=== PATIENT | female | born 1985 | race Caucasian/White ===

== ENCOUNTER 2016-03-15 18:49 | Emergency (ER) | payer MEDICAID ==
[2016-03-15 19:21] VITALS: TEMP 98; O2SAT 97
[2016-03-15] MEDS ORDERED: NS 1,000 ML IV ONE (19:26)
[2016-03-15] MEDS ORDERED: ONDANSETRON 4 MG/2 ML VIAL IVP ONE (19:26)
[2016-03-15 19:48] VITALS: BP 108/72; PULSE 84; RESP 20
[2016-03-15 19:56] LABS: ANION GAP 9 mEq/L (8-16); CALCIUM 9.4 mg/dL (8.5-10.4); CARBON DIOXIDE 23 mEq/l (22-31); CHLORIDE 103 mEq/L (97-110); CREATININE 0.6 mg/dL (0.6-1.0); GLOMERULAR FILTRATION RATE > 60; GLUCOSE 80 mg/dL (70-100); POTASSIUM 4.1 mEq/L (3.5-5.2); SODIUM 135 mEq/L (134-144)
[2016-03-15] MEDS ORDERED: ACETAMINOPHEN 325 MG TAB ONE (20:52)
[2016-03-15] MEDS ORDERED: ONDANSETRON 4MG PREPACK#2 BTL TAKEHOME ONE (21:00)
--- NOTE | 2016-03-15 21:02 | UCPHY ---
H & P Time Seen by Provider: 03/15/16 19:18 Patient Type: Established HPI/ROS: This patient complains of vomiting unrelieved by Diclegis tablets at home. She has a known 14 week IUP with a normal appearing ultrasound 1 week ago. She reports onset of vomiting last night at 7:00 p.m. after dinner and she has been unable to keep her antiemetic medication down. She vomited several times throughout the day prior to arrival here. She reports onset of a headache 6/10 that she attributes to dehydration that feels similar to previous migraines but less intense. Currently her pain level 6/10, frontal location bilaterally throbbing achy in nature. She specifies that the headache started after the vomiting. She is accompanied by her tonlori. ROS: Constitutional: No fevers or chills. Neuro: No focal numbness tingling weakness. HEENT: No vision changes. No recent trauma. No sinus symptoms. Pulmonary: No complaints cardiovascular: No heart palpitations. GI: No significant abdominal pain despite the vomiting. : No vaginal bleeding. no urinary symptoms. 10 point ROS is otherwise negative. Past Medical/Surgical History: Migraines 14 week IUP, Otherwise healthy Smoking Status: Light smoker Physical Exam: Vital signs normal with exception of a pulse of 102. heart tones are in the 150s on Doppler bedside ultrasound General Appearance: Alert, no distress. Eyes: Pupils equal and round no pallor or injection. ENT, Mouth: Mucous membranes dry. No sinus tenderness to percussion. No cranial tenderness. Nose is clear. No oropharynx is clear Neck: Supple with no meningismus. Respiratory: There are no retractions, lungs are clear to auscultation. Cardiovascular: Regular rate and rhythm. Gastrointestinal: Abdomen is soft and nontender, no masses, bowel sounds normal. No uterine tenderness. Uterus consistent with dates. Neurological: GCS of 15. Cranial nerves 2-12 intact. No focal sensory or motor deficits. Skin: Warm and dry, no rashes. Extremities are symmetrical, full range of motion. Psychiatric: Mood and affect normal DIFFERENTIAL DIAGNOSIS: After history and physical exam differential diagnosis was considered for hyperemesis gravidarum, dehydration, tension headache versus mild migraine. Rule out metabolic abnormalityer vomiting Constitutional: Initial Vital Signs Temperature (C) 36.6 C 03/15/16 19:16 Heart Rate 102 H 03/15/16 19:16 Respiratory Rate 18 03/15/16 19:16 Blood Pressure 100/98 H 03/15/16 19:16 O2 Sat (%) 97 03/15/16 19:16 O2 Delivery Mode Room Air Allergies/Adverse Reactions: clindamycin [Clindamycin] Allergy (Verified 01/13/10 07:56) Penicillins Allergy (Verified 05/21/09 23:29) Home Medications: Medication Instructions Recorded Flor Astudillo 10-10 mg Tablet 03/15/16 MDM/Departure - MDM Medications Given: Discontinued Medications Sodium Chloride (Ns) 1,000 mls @ 0 mls/hr IV ONCE ONE PRN Reason: Wide Open Stop: 03/15/16 19:27 Last Admin: 03/15/16 19:45 Dose: 1,000 mls Ondansetron HCl (Zofran) 4 mg IVP EDNOW ONE Stop: 03/15/16 19:27 Last Admin: 03/15/16 19:45 Dose: 4 mg Ondansetron HCl (Zofran Odt 4 Mg Prepack#2) 1 btl TAKEHOME EDNOW ONE Stop: 03/15/16 21:01 Last Admin: 03/15/16 22:05 Dose: 1 btl ED Course/Re-evaluation: IV normal saline bolus Zofran 4 mg IV with resolution of nausea and vomiting. Tylenol p. o. with improvement in headache. Patient declined any other analgesics for her headache. Review of her basic metabolic panel is normal Discussion: Findings consistent with hyperemesis gravidarum with dehydration improved with treatment. Clinically she does not appear to have findings concerning for sinus infection, intracranial bleed or other concerning findings. - Depart Disposition: Home, Routine, Self-Care Clinical Impression: Hyperemesis gravidarum with dehydration Clinical Impression: (Ruled Out): Hyperemesis gravidarum before end of 22 week gestation with carbohydrate depletion Instructions: Hyperemesis Gravidarum (ED) Additional Instructions: Diagnosis: 1. Hyperemesis gravidarum 2. Dehydration Plan: Drink plenty fluids Light diet until he feel improved Zofran tonight if needed for nausea or vomiting and then restart your likely just. Return here or to the emergency department for any significant worsening despite the treatment plan. Referrals: [place],. [Primary Care Provider] - As per Instructions - PQRS PQRS Measurement: NA
== END 2016-03-15 22:08 | disposition home or self-care (01) ==
LOC: CED 18:49
DX: O21.0 Mild hyperemesis gravidarum (principal); Z3A.14 14 weeks gestation of pregnancy
CPT/HCPCS: 80048-PO; 96361-PO; 96374-PO; 99214-PO; G0463-PO; J2405

== ENCOUNTER 2016-04-16 17:49 | Emergency (ER) | payer MEDICAID ==
[2016-04-16 18:16] VITALS: BP 112/62; PULSE 103; RESP 18; TEMP 97.3; O2SAT 97
[2016-04-16 18:16] LABS: COLOR LT. YELLOW; PH,URINE 6.5 (5.0-7.5)
[2016-04-16 18:17] LABS: LEUKOCYTE ESTERASE,URINE 1+ (NEGATIVE); NITRITE,URINE NEGATIVE (NEGATIVE)
[2016-04-16 18:19] LABS: BACTERIA 1+ /hpf (NONE SEEN); MUCUS TRACE /lpf (NONE-1+); RBC,URINE 15-25 /hpf (0-3)
--- NOTE | 2016-04-20 07:06 | EDPHY ---
ED Progress Note Narrative: I did not see this patient.
== END 2016-04-16 18:20 | disposition home or self-care (01) ==
LOC: CED 17:49
DX: O99.89 Other specified diseases and conditions complicating pregnancy, childbirth and the puerperium (principal); R10.30 Lower abdominal pain, unspecified; M54.9 Dorsalgia, unspecified; Z53.21 Procedure and treatment not carried out due to patient leaving prior to being seen by health care provider; Z3A.19 19 weeks gestation of pregnancy
CPT/HCPCS: 81003-PO; 81015-PO

== ENCOUNTER 2016-12-06 13:03 | Emergency (ER) | payer MEDICAID ==
[2016-12-06] MEDS ORDERED: NS 1,000 ML IV ONE (13:15)
[2016-12-06 13:16] VITALS: TEMP 98
[2016-12-06] MEDS ORDERED: KETOROLAC 30 MG/1 ML SDV IVP ONE (13:27)
[2016-12-06 13:44] LABS: % IMMATURE GRANULYOCYTES 0.2 % (0.0-1.1); ABSOLUTE IMMATURE GRANULOCYTES 0.01 10^3/uL (0.00-0.10); ADD DIFF? NO; ADD MORPH? NO; ADD SCAN? NO; ATYPICAL LYMPHOCYTE FLAG 10 (0-99); FRAGMENT RBC FLAG 0 (0-99); HEMATOCRIT 42.9 % (38.0-47.0); HEMOGLOBIN 13.8 g/dL (12.6-16.3); LEFT SHIFT FLG 0 (0-99); LIPEMIA HEMOLYSIS FLAG 80 (0-99); MEAN CELL HEMOGLOBIN 27.4 pg (27.9-34.1); MEAN CELL HEMOGLOBIN CONCENTR. 32.2 g/dL (32.4-36.7); MEAN CELL VOLUME 85.3 fL (81.5-99.8); MEAN PLATELET VOLUME 9.8 fL (8.7-11.7); PLATELET CLUMPS FLAG 0 (0-99); PLATELET COUNT 304 10^3/uL (150-400); RED BLOOD CELL COUNT 5.03 10^6/uL (4.18-5.33); RED CELL DISTRIBUTION WIDTH 14.3 % (11.5-15.2)
[2016-12-06 13:58] LABS: ANION GAP 10 mEq/L (8-16); CALCIUM 9.3 mg/dL (8.5-10.4); CARBON DIOXIDE 26 mEq/l (22-31); CHLORIDE 103 mEq/L (97-110); CREATININE 0.7 mg/dL (0.6-1.0); GLOMERULAR FILTRATION RATE > 60; GLUCOSE 78 mg/dL (70-100); POTASSIUM 4.1 mEq/L (3.5-5.2); SODIUM 139 mEq/L (134-144)
[2016-12-06 14:21] LABS: COLOR YELLOW; LEUKOCYTE ESTERASE,URINE TRACE (NEGATIVE); NITRITE,URINE NEGATIVE (NEGATIVE)
[2016-12-06 14:35] LABS: BACTERIA 1+ /hpf (NONE SEEN)
[2016-12-06 14:36] LABS: AMORPHOUS TRACE /hpf (NONE-1+)
--- NOTE | 2016-12-06 14:44 | EDPHY ---
H & P Stated Complaint: c/o lower abd pain x 3 days - denies N/V/D or trauma Time Seen by Provider: 12/06/16 13:15 HPI/ROS: This patient complains of lower abdominal pain left slightly more than right, gradual onset yesterday. She was driven here by her by private vehicle for further evaluation of the symptoms that she describes as generally moderate in intensity occasionally up to 7/10 cramping aching. Current intensity 6/10. The pain worsens but with movement and she notes no other exacerbating factors. She has not tried any medication for her pain. She reports that the symptoms are similar to premenstrual cramps but seems slightly higher than her past premenstrual cramping. The patient is 3 months and has been breast- feeding until 3 weeks ago. She stopped breast-feeding 3 weeks prior to this visit. She reports no other associated symptoms. ROS: Constitutional: No fevers or chills HEENT: Mild sneezing otherwise complaints. Pulmonary: No cough. Cardiovascular: No lightheadedness GI: No nausea vomiting. She does report loose stools-3 bowel movements a day for the past 3 days. No bloody stools. : No vaginal discharge. No dysuria. Integumentary: No skin rash 10 point ROS is otherwise negative Source: Patient Exam Limitations: No limitations - Personal History LMP (Females 10-55): Over 28 Days Ago Current Tetanus Diphtheria and Acellular Pertussis (TDAP): Unsure - Medical/Surgical History PMH: No chronic medical conditions Hx Asthma: No Hx Chronic Respiratory Disease: No Hx Diabetes: No Hx Cardiac Disease: No Hx Renal Disease: No Hx Cirrhosis: No Hx Alcoholism: No Hx HIV/AIDS: No Hx Splenectomy or Spleen Trauma: No Other PMH: migraines/ CHI, dizziness - Family History Significant Family History: No pertinent family hx - Social History Smoking Status: Light smoker Alcohol Use: Occasionally Drug Use: None - Physical Exam Exam: General Appearance: Alert, no distress. Eyes: Pupils equal and round no pallor or injection. ENT, Mouth: Mucous membranes moist. Respiratory: There are no retractions, lungs are clear to auscultation. Cardiovascular: Regular rate and rhythm. Gastrointestinal: Normoactive soft, mild diffuse lower belly tenderness with no guarding or rebound. Back: No CVA tenderness Neurological: GCS 15 Skin: Warm and dry, no rashes. Musculoskeletal: Neck is supple nontender. Extremities are symmetrical, full range of motion. Psychiatric: Mood and affect normal DIFFERENTIAL DIAGNOSIS: After history and physical exam differential diagnosis was considered for premenstrual cramping, diverticulitis, food intolerance, viral diarrhea, UTI, Constitutional: Initial Vital Signs Temperature (C) 36.6 C 12/06/16 13:13 Heart Rate 78 12/06/16 13:13 Respiratory Rate 20 12/06/16 13:13 Blood Pressure 110/74 12/06/16 13:13 O2 Sat (%) 96 12/06/16 13:13 O2 Delivery Mode Room Air Allergies/Adverse Reactions: clindamycin [Clindamycin] Allergy (Verified 04/16/16 18:12) Penicillins Allergy (Verified 04/16/16 18:12) Home Medications: Medication Instructions Recorded NK [No Known Home Meds] 12/06/16 Medical Decision Making ED Course/Re-evaluation: Course: IV normal saline bolus A review of labs-normal CBC, normal basic metabolic panel, hCG is negative, urinalysis without significant abnormalities. Patient declined Toradol. She except Tylenol p.o. with some improvement Discussion: Patient with lower belly pain that may be parental cramping. I do not think she has diverticulitis given lack of leukocytosis or fever. Food intolerance or mild viral illness causing loose stools and cramping is another possibility. I counseled patient regarding this. Not think she has appendicitis given her minimal symptoms and findings. We ruled out UTI. We ruled out /ectopic with a negative HCG. Patient her stands the need to return emergency department should she develop any significant worsening of her symptoms despite the treatment plan. She will follow up with primary care physician for any ongoing symptoms despite the treatment plan - Data Points Laboratory Results: Laboratory Results 12/06/16 13:40 12/06/16 13:40 12/06/16 12/06/16 12/06/16 14:15 13:40 13:40 WBC RBC Hgb Hct MCV MCH MCHC RDW Plt Count MPV Neut % (Auto) Lymph % (Auto) [place] % (Auto) Eos % (Auto) Baso % (Auto) Nucleat RBC Rel Count Absolute Neuts (auto) Absolute Lymphs (auto) Absolute Monos (auto) Absolute Eos (auto) Absolute Basos (auto) Absolute Nucleated RBC Immature Gran % Immature Gran # Sodium 139 mEq/L mEq/L (134-144) Potassium 4.1 mEq/L mEq/L (3.5-5.2) Chloride 103 mEq/L mEq/L (97-110) Carbon Dioxide 26 mEq/l mEq/l (22-31) Anion Gap 10 mEq/L mEq/L (8-16) BUN 11 mg/dL mg/dL (7-23) Creatinine 0.7 mg/dL mg/dL (0.6-1.0) Estimated GFR > 60 Glucose 78 mg/dL mg/dL (70-100) Calcium 9.3 mg/dL mg/dL (8.5-10.4) Beta HCG, Qual NEGATIVE Urine Color YELLOW Urine Appearance CLEAR Urine pH 6.0 (5.0-7.5) Ur Specific [place] <= 1.005 (1.002-1.030) Urine Protein NEGATIVE (NEGATIVE) Urine Ketones NEGATIVE (NEGATIVE) Urine Blood NEGATIVE (NEGATIVE) Urine Nitrate NEGATIVE (NEGATIVE) Urine Bilirubin NEGATIVE (NEGATIVE) Urine Urobilinogen 0.2 EU EU (0.2-1.0) Ur Leukocyte Esterase TRACE H (NEGATIVE) Urine RBC 1-3 /hpf /hpf (0-3) Urine WBC 1-3 /hpf /hpf (0-3) Ur Epithelial Cells 1+ /lpf /lpf (NONE-1+) Amorphous Sediment TRACE /hpf /hpf (NONE-1+) Urine Bacteria 1+ /hpf H /hpf (NONE SEEN) Urine Glucose NEGATIVE (NEGATIVE) 12/06/16 13:40 WBC 6.34 10^3/uL 10^3/uL (3.80-9.50) RBC 5.03 10^6/uL 10^6/uL (4.18-5.33) Hgb 13.8 g/dL g/dL (12.6-16.3) Hct 42.9 % % (38.0-47.0) MCV 85.3 fL fL (81.5-99.8) MCH 27.4 pg L pg (27.9-34.1) MCHC 32.2 g/dL L g/dL (32.4-36.7) RDW 14.3 % % (11.5-15.2) Plt Count 304 10^3/uL 10^3/uL (150-400) MPV 9.8 fL fL (8.7-11.7) Neut % (Auto) 48.4 % % (39.3-74.2) Lymph % (Auto) 39.1 % % (15.0-45.0) O'Brien % (Auto) 8.2 % % (4.5-13.0) Eos % (Auto) 3.2 % % (0.6-7.6) Baso % (Auto) 0.9 % % (0.3-1.7) Nucleat RBC Rel Count 0.0 % % (0.0-0.2) Absolute Neuts (auto) 3.07 10^3/uL 10^3/uL (1.70-6.50) Absolute Lymphs (auto) 2.48 10^3/uL 10^3/uL (1.00-3.00) Absolute Monos (auto) 0.52 10^3/uL 10^3/uL (0.30-0.80) Absolute Eos (auto) 0.20 10^3/uL 10^3/uL (0.03-0.40) Absolute Basos (auto) 0.06 10^3/uL 10^3/uL (0.02-0.10) Absolute Nucleated RBC 0.00 10^3/uL 10^3/uL (0-0.01) Immature Gran % 0.2 % % (0.0-1.1) Immature Gran # 0.01 10^3/uL 10^3/uL (0.00-0.10) Sodium Potassium Chloride Carbon Dioxide Anion Gap BUN Creatinine Estimated GFR Glucose Calcium Beta HCG, Qual Urine Color Urine Appearance Urine pH Ur Specific [place] Urine Protein Urine Ketones Urine Blood Urine Nitrate Urine Bilirubin Urine Urobilinogen Ur Leukocyte Esterase Urine RBC Urine WBC Ur Epithelial Cells Amorphous Sediment Urine Bacteria Urine Glucose Medications Given: Discontinued Medications Sodium Chloride (Ns) 1,000 mls @ 0 mls/hr IV EDNOW ONE; Wide Open PRN Reason: Protocol Stop: 12/06/16 13:16 Last Admin: 12/06/16 13:44 Dose: 1,000 mls Ketorolac Tromethamine (Toradol) 30 mg IVP EDNOW ONE Stop: 12/06/16 13:28 Last Admin: 12/06/16 13:46 Dose: Not Given Departure - Departure Disposition: Home, Routine, Self-Care Clinical Impression: Lower abdominal pain Condition: Good Instructions: Acute Abdominal Pain (ED) Additional Instructions: Diagnosis: Lower abdominal pain Your blood count is normal today. Urinalysis shows no significant abnormalities. Your electrolytes are normal. Your pain may be is result of premenstrual cramping. You may also have some cramping associated with her loose stools. This can be from food intolerance or mild viral illness. Plan: Drink plenty fluids Tylenol and/or ibuprofen for discomfort if needed Follow up with primary care physician or OBGYN for any ongoing symptoms. Return for any significant worsening despite treatment plan Referrals: Misha Farias MD [Primary Care Provider] - As per Instructions
[2016-12-06 14:59] VITALS: BP 97/70; PULSE 80; RESP 18; O2SAT 97
== END 2016-12-06 14:57 | disposition home or self-care (01) ==
LOC: CED 13:03
DX: R10.30 Lower abdominal pain, unspecified (principal); E86.9 Volume depletion, unspecified; F17.200 Nicotine dependence, unspecified, uncomplicated
CPT/HCPCS: 80048-PO; 81003-PO; 81015-PO; 84703-PO; 85025-PO; J1885

== ENCOUNTER → 2017-12-27 | Outpatient (CLI) | payer MEDICAID | LOC: CIMAGING 12:35 | PROVIDERS: ATTEND Family Medicine | DX: R93.89 Abnormal findings on diagnostic imaging of other specified body structures (principal); D25.9 Leiomyoma of uterus, unspecified; N83.291 Other ovarian cyst, right side | CPT/HCPCS: 76856-PO ==

== ENCOUNTER → 2018-05-30 | Outpatient (CLI) | payer MEDICAID | LOC: CIMAGING 09:48 | PROVIDERS: ATTEND Family Medicine | DX: Z12.31 Encounter for screening mammogram for malignant neoplasm of breast (principal); Z80.3 Family history of malignant neoplasm of breast ==

== ENCOUNTER 2018-07-05 17:37 | Emergency (ER) | payer MEDICAID ==
[2018-07-05] MEDS ORDERED: ACETAMINOPHEN 500 MG TAB PO ONE (17:58)
--- NOTE | 2018-07-05 18:04 | EDPHY ---
H & P Time Seen by Provider: 07/05/18 17:46 HPI/ROS: CHIEF COMPLAINT: Cough HISTORY OF PRESENT ILLNESS: The patient is a 33-year-old female who smokes the presents emergency department with cough and cold symptoms. Patient states "I do not feel well."Patient states her symptoms started 2 days ago. Her cold is primarily in her chest. She has significant cough that is productive of green sputum. She denies any measured fever at home. No nausea or vomiting. No abdominal pain. The patient states that her entire family was recently sick with a respiratory illness. The patient has had pneumonia before but she does not get pneumonia frequently. REVIEW OF SYSTEMS: 10 systems were reveiwed and are negative with the exception of the elements mentioned in the history of present illness. Past Medical/Surgical History: Includes pneumonia Social history: Patient smokes cigarettes. No THC. Smoking Status: Heavy smoker Physical Exam: Vitals noted. Febrile. GENERAL: No acute distress, alert. HEENT: Eyes normal to inspection, normal pharynx, no signs of dehydration. NECK: Normal, supple. RESPIRATORY: Clear to auscultation bilaterally, no rales, rhonchi or wheezing. Occasional cough. CVS: Regular rate and rhythm, no rubs, murmurs, or gallops. ABDOMEN: Soft, nontender, nondistended, no organomegaly. BACK: Normal to inspection, no CVA tenderness. SKIN: Normal color, no rash, warm, dry. No pallor. EXTREMITIES: No pedal edema, no calf tenderness, no Homans sign or cords, no joint swelling. NEURO/PSYCH: Alert and oriented, normal mood and affect, normal motor sensory exam. Constitutional: Initial Vital Signs Temperature (C) 38.3 C H 07/05/18 17:50 Heart Rate 105 H 07/05/18 17:50 Respiratory Rate 16 07/05/18 17:50 Blood Pressure 120/83 H 07/05/18 17:50 O2 Sat (%) 96 07/05/18 17:50 O2 Delivery Mode Room Air Allergies/Adverse Reactions: clindamycin [Clindamycin] Allergy (Verified 07/05/18 17:55) Penicillins Allergy (Verified 07/05/18 17:55) Home Medications: Medication Instructions Recorded levOFLOXACIN [Levaquin] 750 mg PO DAILY #10 tab 07/05/18 Medical Decision Making - Diagnostics Imaging Results: Imaging Impressions Chest X-Ray 07/05/18 18:01 Impression: New/increased posterior basilar opacities which could be related to atelectasis or pneumonia. ED Course/Re-evaluation: In the emergency department I discussed possible etiologies with the patient. I answered all her questions. Chest x-ray was ordered. Patient was given Tylenol for her fever. Chest x-ray: Please refer the dictated report. I reviewed the images personally. The patient has new basilar opacities which could represent pneumonia versus atelectasis. Based on the patient's presentation she will be started on antibiotics. She was given Levaquin in the emergency department. She is given a prescription of Levaquin on discharge. She will return worsening symptoms was given warnings prior to leaving. Differential Diagnosis: My differential includes but is not limited to pneumonia, bronchitis, bacteremia , sepsis, reactive airway disease - Data Points Medications Given: Discontinued Medications Acetaminophen (Tylenol) 1,000 mg PO EDNOW ONE Stop: 07/05/18 17:59 Last Admin: 07/05/18 18:02 Dose: 1,000 mg Departure - Departure Disposition: Home, Routine, Self-Care Clinical Impression: Pneumonia Qualifiers: Pneumonia type: due to unspecified organism Laterality: unspecified laterality Lung location: lower lobe of lung Qualified Code(s): J18.1 - Lobar pneumonia, unspecified organism Condition: Good Instructions: Pneumonia (ED) Additional Instructions: Return with increasing shortness of breath, cough, chest pain or any other concerns. Take your entire course of antibiotics. Referrals: Misha Farias MD [Primary Care Provider] - 2-3 days without fail Prescriptions: levOFLOXACIN [Levaquin] 750 mg PO DAILY #10 tab
[2018-07-05 18:54] VITALS: BP 105/72
== END 2018-07-05 18:45 | disposition home or self-care (01) ==
LOC: CED 17:37
DX: J18.1 Lobar pneumonia, unspecified organism (principal); F17.200 Nicotine dependence, unspecified, uncomplicated
CPT/HCPCS: 71046-PO; 99283-ER